=== PATIENT | male | born 1985 | race Two or more races ===

== ENCOUNTER 2025-07-14 05:54 | Emergency (ER) | payer OTHER ==
[~2025-07-14] VITALS: Ht 170.2 cm; Wt 118.0 kg
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
[2025-07-14] MEDS: KETOROLAC TROMETH 30 MG/ML 1ML VIAL IM ONE (08:05)
[2025-07-14] MEDS ORDERED: METH-1181 PO (08:17)
[2025-07-14] MEDS ORDERED: IBUP1TAB5 PO (08:17)
[2025-07-14 08:22] VITALS: BP 148/78; PULSE 92; RESP 18; TEMP 98.3; O2SAT 97
== END 2025-07-14 08:25 | disposition home or self-care (01) ==
LOC: ER 05:54 → EDBD 05:54 → ER 08:25
DX: M54.50 Low back pain, unspecified (principal); M25.562 Pain in left knee; M25.561 Pain in right knee; V49.40XA Driver injured in collision with unspecified motor vehicles in traffic accident, initial encounter; Y93.89 Activity, other specified; Y92.410 Unspecified street and highway as the place of occurrence of the external cause; Y99.8 Other external cause status
CPT/HCPCS: 72100; 73562; 96372; 99284; J1885